=== PATIENT | female | born 1970 ===

== ENCOUNTER 2022-06-22 17:34 | Day surgery (SDC) | payer OTHER ==
[~2022-06-22] VITALS: Ht 157.5 cm; Wt 66.7 kg
== END 2022-06-22 20:32 | disposition home or self-care (01) ==
LOC: CIR.AMB 17:34
PROVIDERS: ATTEND Colon & Rectal Surgery
DX: D12.8 Benign neoplasm of rectum (principal); I10 Essential (primary) hypertension; E03.9 Hypothyroidism, unspecified; K59.00 Constipation, unspecified